=== PATIENT | female | born 1995 | race Caucasian/White ===

== ENCOUNTER 2023-08-23 07:18 | Day surgery (SDC) | payer BC ==
[~2023-08-23 07:18] MED LIST: Ketorolac 30 MG/ML SDV ONE; Lidocaine 2% 5 ML SDV ONE; Ondansetron 4 MG/2 ML SDV ONE; Sodium Chloride 0.9% 10 ML Syringe FLUSH PRN; Sodium Chloride 0.9% 2.5 ML Syringe FLUSH PRN; Sodium Chloride 0.9% 20 ML SDV IV PRN; Water For Injection, Sterile 20 ML ONE; fentaNYL 100 MCG/2 ML SDV ONE; propofoL 100 ML ONE
[2023-08-23] MEDS ORDERED: Morphine 2 MG/ML SYRINGE IVPUSH PRN (07:23)
[2023-08-23] MEDS ORDERED: Naloxone 0.4 MG/ML SDV IVPUSH PRN (07:23)
[2023-08-23] MEDS ORDERED: fentaNYL 50 MCG/ML SDV IVPUSH PRN (07:23)
[2023-08-23] MEDS ORDERED: Ondansetron 4 MG/2 ML SDV IVPUSH PRN (07:23)
[2023-08-23] MEDS ORDERED: Metoclopramide 10 MG/2 ML SDV IVPUSH PRN (07:23)
[2023-08-23] MEDS ORDERED: Albuterol 0.083% 2.5 MG/3 ML Neb Soln NEB PRN (07:23)
[2023-08-23] MEDS ORDERED: droPERidol 5 MG/2 ML SDV IVPUSH PRN (07:23)
[2023-08-23] MEDS ORDERED: HYDROmorphone 1 MG/ML Syringe IVPUSH PRN (07:23)
[2023-08-23] MEDS ORDERED: Iodine/Potassium Iodide 5% Solution 14 ML Bottle ONE (07:49)
[2023-08-23] MEDS ORDERED: Lidocaine 1% 20 ML MDV ONE (07:49)
[2023-08-23] MEDS ORDERED: Ferric Subsulfate Topical Soln 8 GM (8 ML) Bottle ONE (07:49)
[2023-08-23] MEDS: Scopalamine 1mg/3day Transdermal Patch TOP ONE (07:52)
[2023-08-23] MEDS ORDERED: Metoclopramide 10 MG/2 ML SDV ONE (07:54)
[2023-08-23] MEDS: Lactated Ringers 1,000 ML IV SCH (07:56)
== END 2023-08-23 10:08 | disposition home or self-care (01) ==
LOC: MW.SDS 07:18
PROVIDERS: ATTEND Obstetrics & Gynecology
DX: D06.9 Carcinoma in situ of cervix, unspecified (principal)
CPT/HCPCS: 57522; A9270; J0131; J1885; J2704; J2765; J3010; J7120; 00940; J2405; J3490